=== PATIENT | male | born 1950 | race Caucasian/White ===

== ENCOUNTER 2017-02-01 15:18 | Emergency (ER) | payer OTHER ==
[~2017-02-01] VITALS: Ht 177.8 cm; Wt 86.2 kg
[2017-02-01 15:33] VITALS: TEMP 36.7; Ht 177.8 cm; Wt 86.2 kg
[2017-02-01] MEDS ORDERED: SODIUM CHLORIDE 0.9% 500ML 500 ML IV STA (15:54)
--- NOTE | 2017-02-01 16:01 | EMERGENCY ROOM VISIT NOTE ---
History Report prepared by Bita: Demetrio Johnson Under the Supervision of: Dr. Joseph Hyde M.D. First contact with patient: 15:48 Chief Complaint: BACK PAIN Stated Complaint: BACK PAIN History of Present Illness The patient is a 66 year old male with a history of kidney stones who presents to the Emergency Room with complaints of persistent mid lower back pain that started around 6 hours ago. He says that he had a colonoscopy yesterday, and everything went fine. He states that she had a polyp excised and had a staple put in. The patient says that he was doing his normal chores this morning and felt fine, but suddenly while standing in his garage, he started having low back pain that almost made him "go down". The patient called his doctor's office to ask if back pain was associated with a colonoscopy, but the patient was told that back pain is never associated with it. The patient adds that the back pain is worsened with movement. He rates the pain as a 2 or 3 out of 10 when resting, and an 8 out of 10 with movement. He denies any shortness of breath, cough, congestion, abdominal pain, leg pain, or new urinary symptoms. He also denies any recent falls. The patient's last kidney stone was 3 years ago , per the patient's . The patient says that he took 2 ibuprofen when the pain came on this morning with no relief. Source of History: patient, spouse/significant other Onset: Around 6 hours ago Position: back (lower) Symptom Intensity: 8/10 with movement Timing: other (persistent) Modifying Factors (Worsening): movement Associated Symptoms: No cough, No SOB, No abdominal pain, No urinary symptoms (no new) Note: Associated symptoms: Denies leg pain, congestion. Review of Systems See HPI for pertinent positives & negatives. A total of 10 systems reviewed and were otherwise negative. Past Medical & Surgical Medical Problems: (1) Urinary symptom or sign Family History Cancer Diabetes mellitus FH: heart disease FHx: lung disease Hypertension Social History Smoking Status: Former Smoker Alcohol Use: occasionally Marital Status: Housing Status: lives with family Occupation Status: retired Current/Historical Medications Scheduled PRN Oxycodone Ir (Roxicodone Ir), 1-2 TAB PO Q4H PRN for Pain Allergies Coded Allergies: No Known Allergies (Unverified , 02/01/17) Physical Exam Vital Signs Date Time Temp Pulse Resp B/P (MAP) Pulse Ox O2 Delivery O2 Flow Rate FiO2 02/01/17 18:44 56 117/75 100 02/01/17 15:33 36.7 59 20 120/75 98 Room Air Physical Exam GENERAL: Patient is in no acute distress. HEENT: No acute trauma, normocephalic atraumatic, mucous membranes moist, no nasal congestion, no scleral icterus. NECK: No stridor, no adenopathy, no meningismus, trachea is midline. LUNGS: Clear to auscultation bilaterally, no wheeze, no rhonchi, breath sounds equal. HEART: Without murmurs gallops or rubs, regular rate and rhythm. BACK: No focal lumbar tenderness. Pain does worsen with movement. ABDOMEN: Soft, nontender, bowel sounds positive, no hernias, no peritonitis. EXTREMITIES: No cyanosis or edema, full range of motion of all the joints without pain or difficulty, no signs for acute trauma. NEUROLOGIC: Oriented x 3, no acute motor or sensory deficits, no focal weakness. SKIN: No rash, no jaundice, no diaphoresis. Medical Decision & Procedures ER Provider Diagnostic Interpretation: CT results as stated below per my review and radiologist interpretation: LUMBAR SPINE WITHOUT CLINICAL HISTORY: 66 years-old Male presenting with low back pain, reformat from abdominal CT scan, recent colonoscopy. TECHNIQUE: Multidetector CT of the lumbar spine was performed without the use of intravenous contrast. IV contrast: None. A dose lowering technique was used consistent with the principles of ALARA (as low as reasonably achievable). COMPARISON: CT of the abdomen and pelvis from 2009. CT DOSE (mGy.cm): The estimated cumulative dose is 394.88 mGy.cm. 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 Vertebral body heights and alignment preserved. Lucent lesions noted in the L1 and L2 vertebral bodies consistent with hemangiomas. Intervertebral disc spaces preserved. No degenerative change. No osseous spinal canal or neural foraminal narrowing. No acute fracture or subluxation. No evidence of disc bulge. Paraspinal soft tissues within normal limits. IMPRESSION: No acute osseous injury of the lumbar spine. Electronically signed by: Franck Kate M.D. 02/01/2017 5:27 PM Dictated Date/Time: 02/01/2017 5:[address] OF THE ABDOMEN AND PELVIS WITH CONTRAST CLINICAL HISTORY: Abdominal pain. Colonoscopy yesterday. Evaluate for free air. COMPARISON STUDY: CT of the abdomen and pelvis April 04, 2010. TECHNIQUE: Following IV administration of 119 mL of Optiray-320, axial images of the abdomen and pelvis were obtained from the lung bases to the proximal femurs. Images were reviewed in the axial, sagittal, and coronal planes. IV contrast was administered without complication. A dose lowering technique was utilized adhering to the principles of ALARA. FINDINGS: No pneumatosis, free air or portal venous gas is present. A few subcentimeter hypodense lesions are too small to characterize but likely benign. The spleen, adrenal glands, kidneys and pancreas are unremarkable. There is no hydronephrosis. The caliber and wall thickness of small and large bowel are normal. There is an endoscopic clip within the cecum. There is no free fluid. No lymphadenopathy is present. Skeletal structures are unremarkable. The appendix is normal. IMPRESSION: No acute process within the abdomen or pelvis. No free air. Electronically signed by: Hill Marie M.D. 02/01/2017 5:33 PM Dictated Date/Time: 02/01/2017 5:20 PM Laboratory Results 02/01/17 16:00 Red Blood Count 4.69, Mean Corpuscular Volume 93.4, Mean Corpuscular Hemoglobin 32.4, Mean Corpuscular Hemoglobin Concent 34.7, Mean Platelet Volume 9.5, Neutrophils (%) (Auto) 57.6, Lymphocytes (%) (Auto) 31.2, Monocytes (%) (Auto) 10.4, Eosinophils (%) (Auto) 0.3, Basophils (%) (Auto) 0.3, Neutrophils # (Auto ) 3.47, Lymphocytes # (Auto) 1.88, Monocytes # (Auto) 0.63, Eosinophils # (Auto ) 0.02, Basophils # (Auto) 0.02 02/01/17 16:00 Test 02/01/17 16:00 White Blood Count 6.03 K/uL (4.8-10.8) Red Blood Count 4.69 M/uL (4.7-6.1) Hemoglobin 15.2 g/dL (14.0-18.0) Hematocrit 43.8 % (42-52) Mean Corpuscular Volume 93.4 fL (80-100) Mean Corpuscular Hemoglobin 32.4 pg (25-34) Mean Corpuscular Hemoglobin Concent 34.7 g/dl (32-36) Platelet Count 222 K/uL (130-400) Mean Platelet Volume 9.5 fL (7.4-10.4) Neutrophils (%) (Auto) 57.6 % Lymphocytes (%) (Auto) 31.2 % Monocytes (%) (Auto) 10.4 % Eosinophils (%) (Auto) 0.3 % Basophils (%) (Auto) 0.3 % Neutrophils # (Auto) 3.47 K/uL (1.4-6.5) Lymphocytes # (Auto) 1.88 K/uL (1.2-3.4) Monocytes # (Auto) 0.63 K/uL (0.11-0.59) Eosinophils # (Auto) 0.02 K/uL (0-0.5) Basophils # (Auto) 0.02 K/uL (0-0.2) RDW Standard Deviation 43.1 fL (36.4-46.3) RDW Coefficient of Variation 12.7 % (11.5-14.5) Immature Granulocyte % (Auto) 0.2 % Immature Granulocyte # (Auto) 0.01 K/uL (0.00-0.02) Anion Gap 6.0 mmol/L (3-11) Est Creatinine Clear Calc Drug Dose 67.3 ml/min Estimated GFR () 80.1 Estimated GFR (Non- 69.1 BUN/Creatinine Ratio 11.5 (10-20) Calcium Level 9.6 mg/dl (8.5-10.1) Total Bilirubin 0.4 mg/dl (0.2-1) Aspartate Amino Transf (AST/SGOT) 26 U/L (15-37) Alanine Aminotransferase (ALT/SGPT) 31 U/L (12-78) Alkaline Phosphatase 73 U/L (45-117) Total Protein 7.2 gm/dl (6.4-8.2) Albumin 3.7 gm/dl (3.4-5.0) Globulin 3.5 gm/dl (2.5-4.0) Albumin/Globulin Ratio 1.1 (0.9-2) Chemistry Specimen Hemolysis Laboratory results reviewed by me. Medications Administered Medications (Trade) Dose Ordered Sig/Earl Route Start Time Stop Time Status Last Admin Dose Admin Sodium Chloride 500 ml @ 999 mls/hr Q31M STAT IV 02/01/17 15:54 02/01/17 16:24 DC 02/01/17 16:16 999 MLS/HR ED Course 1548: The patient was evaluated in room B10. A complete history and physical exam was performed. 1554: Ordered NSS 500 ml @ 999 mls/hr IV. 1754: I reevaluated the patient and he is resting. The patient verbally expressed understanding and agreement of the treatment plan. The patient will be discharged. Medical Decision Differential diagnoses considered include bowel perforation, hematoma, lumbar strain, compression fracture, nerve impingement, disc disease, renal stone, UTI. There is no leukocytosis or concerning anemia. No significant electrolyte abnormality, kidney failure or hepatitis. On exam, the patient did not have any abdominal pain, there was no reproducible back pain but his pain did worsen with movement. Abdominal and pelvis CT does not show any evidence for perforation from the colonoscopy, no areas of hematoma. A mildly dilated aortic root was seen and thought [id number] was suggested. Lumbar spine CT did not show any acute fracture or malalignment. The patient's pain is likely musculoskeletal. The colonoscopy yesterday appears to have nothing to do with his presentation today. He was reassured. [id number] pain medication, oxycodone for severe pain. He will return for worsening symptoms or fever. He will follow with his doctor for the mildly dilated aortic root. [place] Drug Monitoring Program Search Results: patient reviewed within database, no issues identified Medication Reconcilliation Current Medication List: was personally reviewed by me Impression Primary Impression: Low back pain Additional Impression: Status post colonoscopy Scribe Attestation The scribe's documentation has been prepared under my direction and personally reviewed by me in its entirety. I confirm that the note above accurately reflects all work, treatment, procedures, and medical decision making performed by me. Departure Information Dispostion Home / Self-Care Prescriptions Oxycodone Ir (Roxicodone Ir) 5 Mg Tab 1-2 TAB PO Q4H Y for Pain, #8 TAB Prov: Joseph Hyde M.D. 02/01/17 Referrals Niall Torres MD (PCP) Forms HOME CARE DOCUMENTATION FORM, IMPORTANT VISIT INFORMATION Patient Instructions My [facility] Additional Instructions massage and heat should help no heavy lifting, stooping or bending rest otc pain meds as directed may use oxy ir 1 tab every 4 hours for severe pain return if worsening imaging and lab testing was ok today Problem Qualifiers Primary Impression: Low back pain Chronicity: acute Back pain laterality: midline Sciatica presence: unspecified whether sciatica present Qualified Codes: M54.5 - Low back pain
[2017-02-01] MEDS ORDERED: OPTIRAY 320 IV PRN (16:15)
[2017-02-01 16:16] LABS: BASO % 0.3 %; BASO ABS # 0.02 K/uL (0-0.2); COMPLETE YES; EOS % 0.3 %; HEMATOCRIT 43.8 % (42-52); IG% 0.2 %; LYMPH % 31.2 %; LYMPH ABS # 1.88 K/uL (1.2-3.4); MEAN CELL VOLUME 93.4 fL (80-100); MEAN CORPUSCULAR HEMOGLOBIN 32.4 pg (25-34); MEAN CORPUSCULAR HGB CONC 34.7 g/dl (32-36); MEAN PLATELET VOLUME 9.5 fL (7.4-10.4); MONO % 10.4 %; NEUT % 57.6 %; PLATELET COUNT 222 K/uL (130-400); RED BLOOD COUNT 4.69 M/uL (4.7-6.1); WHITE BLOOD COUNT 6.03 K/uL (4.8-10.8)
[2017-02-01 16:37] LABS: BUN/CREATININE RATIO 11.5 (10-20); CALCIUM 9.6 mg/dl (8.5-10.1); CREATININE 1.1 mg/dl (0.60-1.40); POTASSIUM 4.1 mmol/L (3.5-5.1)
[2017-02-01 16:43] LABS: ALB/GLOB RATIO 1.1 (0.9-2)
--- NOTE | 2017-02-01 17:28 | DIAGNOSTIC IMAGING REPORT ---
LUMBAR SPINE WITHOUT CLINICAL HISTORY: 66 years-old Male presenting with low back pain, reformat from abdominal CT scan, recent colonoscopy. TECHNIQUE: Multidetector CT of the lumbar spine was performed without the use of intravenous contrast. IV contrast: None. A dose lowering technique was used consistent with the principles of ALARA (as low as reasonably achievable). COMPARISON: CT of the abdomen and pelvis from 2010. CT DOSE (mGy.cm): The estimated cumulative dose is 394.88 mGy.cm. 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 Vertebral body heights and alignment preserved. Lucent lesions noted in the L1 and L2 vertebral bodies consistent with hemangiomas. Intervertebral disc spaces preserved. No degenerative change. No osseous spinal canal or neural foraminal narrowing. No acute fracture or subluxation. No evidence of disc bulge. Paraspinal soft tissues within normal limits. IMPRESSION: No acute osseous injury of the lumbar spine. Electronically signed by: Franck Kate M.D. 02/01/2017 5:27 PM Dictated Date/Time: 02/01/2017 5:22 PM
--- NOTE | 2017-02-01 17:34 | DIAGNOSTIC IMAGING REPORT ---
ADDENDUM Addendum: Images of the lower chest demonstrate mild dilatation of visualized portions of the aortic root, measuring approximately 4.2 cm at the level of the sinuses of Valsalva. A nonemergent CTA of the chest is recommended. Discussed with Dr. Hyde. Electronically signed by: Hill Marie M.D. 02/01/2017 6:36 PM Dictated Date/Time: 02/01/2017 6:[address] OF THE ABDOMEN AND PELVIS WITH CONTRAST CLINICAL HISTORY: Abdominal pain. Colonoscopy yesterday. Evaluate for free air. COMPARISON STUDY: CT of the abdomen and pelvis April 04, 2010. TECHNIQUE: Following IV administration of 119 mL of Optiray-320, axial images of the abdomen and pelvis were obtained from the lung bases to the proximal femurs. Images were reviewed in the axial, sagittal, and coronal planes. IV contrast was administered without complication. A dose lowering technique was utilized adhering to the principles of ALARA. FINDINGS: No pneumatosis, free air or portal venous gas is present. A few subcentimeter hypodense lesions are too small to characterize but likely benign. The spleen, adrenal glands, kidneys and pancreas are unremarkable. There is no hydronephrosis. The caliber and wall thickness of small and large bowel are normal. There is an endoscopic clip within the cecum. There is no free fluid. No lymphadenopathy is present. Skeletal structures are unremarkable. The appendix is normal. IMPRESSION: No acute process within the abdomen or pelvis. No free air. Electronically signed by: Hill Marie M.D. 02/01/2017 5:33 PM Dictated Date/Time: 02/01/2017 5:20 PM
[2017-02-01] MEDS ORDERED: OXYC1TAB3 PO (17:59)
[2017-02-01 18:44] VITALS: BP 117/75; PULSE 56; O2SAT 100
== END 2017-02-01 18:45 | disposition home or self-care (01) ==
LOC: C.EDB 15:19
DX: M54.5 Low back pain (principal); Z87.442 Personal history of urinary calculi; Z98.890 Other specified postprocedural states; Z87.891 Personal history of nicotine dependence; Z80.9 Family history of malignant neoplasm, unspecified; Z83.3 Family history of diabetes mellitus; Z82.49 Family history of ischemic heart disease and other diseases of the circulatory system

== ENCOUNTER → 2017-05-30 | Outpatient (CLI) | payer OTHER ==
[~2017-05-30] MED LIST: OXYC1TAB3 PO
== END | disposition home or self-care (01) ==
LOC: C.LAB 09:31
PROVIDERS: ATTEND Urology
DX: N40.1 Benign prostatic hyperplasia with lower urinary tract symptoms (principal); N52.9 Male erectile dysfunction, unspecified

== ENCOUNTER 2018-02-09 15:35 | Emergency (ER) | payer OTHER ==
[~2018-02-09] VITALS: Ht 177.8 cm; Wt 86.6 kg
[2018-02-09 15:44] VITALS: TEMP 36.3; Ht 177.8 cm; Wt 86.6 kg
[2018-02-09] MEDS ORDERED: ASPIRIN 81 MG CHEW PO STA (15:58)
[2018-02-09 16:19] VITALS: O2SAT 97
--- NOTE | 2018-02-09 16:23 | EMERGENCY ROOM VISIT NOTE ---
ED Visit Note First contact with patient: 15:48 CHIEF COMPLAINT: Dizziness/near syncope, left shoulder/arm pain, shortness of breath HISTORY OF PRESENTING ILLNESS: This is a 67-year-old male who presents to the emergency department by private vehicle with his with complaint of dizziness and near syncope that started around 2 PM today. Patient states that he was exerting himself quite a lot this morning, splitting wood and pushing a wheelbarrow full of wood. He states he started feeling lightheaded while he was splitting wood. He was pushing a wheelbarrow full of wood to the house when he became very dizzy and nearly passed out. He though maybe he was dehydrated, but he has been drinking normally today and his symptoms did not improve. He also states that he felt short of breath and began to develop an ache in his left shoulder radiating down the arm. His symptoms improved somewhat with rest, but were persistent with even light exertion, so he decided to come to the emergency department to be checked. He states his symptoms have mostly resolved since arriving to the emergency department and being at rest, but he states that they seem to come back with minimal exertion. He also feels very anxious right now. He currently describes pain in his left arm as a dull ache, states it is almost gone, but rates it a 1/10. He denies any numbness or tingling in the arm. He does not feel short of breath or dizzy right now. He is a former smoker, quit over 35 years ago. He denies any history of hypertension, hyperlipidemia, or diabetes. Family history of congenital heart defect in his mother, as well as family history for diabetes, he denies any known history of coronary artery disease or myocardial infarction. REVIEW OF SYSTEMS: A complete 10 point review of systems was reviewed with the patient with pertinent positives and negatives as per history of present illness. All else were negative. PAST MEDICAL HISTORY: BPH SOCIAL HISTORY: Lives at home with . Denies tobacco use. ALLERGIES: No known allergies. PHYSICAL EXAM: CONSTITUTIONAL: Pleasant and cooperative. No acute distress. Well-hydrated, well appearing and well nourished. HEENT: Normocephalic, atraumatic. Pupils equal, round and reactive to light, EOMI. TMs normal. Pharynx normal. Moist mucous membranes. NECK: Supple, full active range of motion without discomfort. RESPIRATORY: Clear to auscultation bilaterally with no wheezing, crackles, rhonchi or stridor. Equal expansion bilaterally. CARDIOVASCULAR: Regular rate and rhythm with no murmurs, rubs or gallops. Normal peripheral perfusion. No edema. GASTROINTESTINAL: Soft, nontender, nondistended. No palpable masses or HSM. Bowel sounds present in all quadrants. MUSCULOSKELETAL: Full range of motion of all joints without discomfort. INTEGUMENTARY: No rash or other significant dermatologic conditions noted. NEUROLOGIC: Alert and oriented X 4 with normal affect. Cranial nerves II-XII grossly intact, no facial droop. No pronator drift. No focal neurologic deficits noted. Normal strength and sensation in all 4 extremities. Normal speech. Normal gait observed. Negative Romberg. ED COURSE AND MEDICAL DECISION MAKING: CC: Patient presenting with complaint of exertional dizziness/near syncope with shortness of breath and left shoulder pain DIFFERENTIAL DIAGNOSIS: Includes, but not limited to acute coronary syndrome, unstable angina, PE, aortic dissection, orthostatic hypotension, vasovagal episode, cardiac dysrhythmia, dehydration, electrolyte abnormality, among others. INTERPRETATION OF LABS: No leukocytosis, no anemia, normal platelets, no significant electrolyte abnormalities, normal renal function, normal liver enzymes and lipase. Troponin 3 negative. Coagulation factors within normal limits. IMAGING: CHEST 2 VIEWS ROUTINE CLINICAL HISTORY: CHEST PAIN pain COMPARISON STUDY: No previous studies for comparison. FINDINGS: The bones soft tissues and hemidiaphragms are normal. The cardiomediastinal silhouette is normal. The lungs are clear. The pulmonary vasculature is normal. IMPRESSION: Negative chest. EKG: Shows normal sinus rhythm with a rate of 80 bpm, no ST or T-wave changes, no ectopy, when compared to previous EKG from 08/06/2015, the rate is increased by 25 bpm, no other significant changes by my interpretation. MEDICATION RECONCILIATION: I attest that I have personally reviewed the patient 's current medication list. INITIAL VITAL SIGNS REVIEW: I reviewed the patient's initial vital signs and interpret them as follows: T: Afebrile; BP: Normotensive; HR: Within normal limits; RR: Within normal limits; Pulse Ox: Within normal limits on room air. Blood pressure screening: The patient was found to have normal blood pressure on screening and does not require follow-up for repeat blood pressure check. SUMMARY: Patient was evaluated at bedside, history and physical exam performed. Patient is alert and oriented, in no acute distress, resting calmly in stretcher. Heart and lung exam are unremarkable. He is normotensive. Low risk for PE by Well's criteria. Exertional symptoms concerning for ACS. Aspirin 324mg chewable ordered. EKG reviewed at bedside, NSR with no acute ischemic changes. Orders were placed at bedside for labs including troponin, orthostatic vital signs, chest x-ray to evaluate for cardiopulmonary abnormalities. Patient discussed with Dr. Pena, who agrees with my assessment and plan. Labs and imaging reviewed as above, initial workup is negative. Orthostatic vital signs are negative and the patient does not appear clinically dehydrated. Patient's workup for ACS so far has been negative, no acute STEMI or NSTEMI, but exertional symptoms concerning for underlying cardiac problem. I do feel the patient would benefit from an admission for cardiac rule out. I spoke with Dr. Alfaro, hospitalist, who feels the patient is low risk, recommended performing another troponin at 6 hours. 6 hour troponin is also negative. 1 L fluid bolus ordered by Dr. Alfaro. Patient continues to be symptom free. Given negative troponin at 6 hours and patient is relatively low risk, Dr. Alfaro did not feel the patient warranted admission at this time. He recommended starting the patient on a baby aspirin, and have the patient follow-up with his PCP within 1 week and have an outpatient stress test ordered. Patient reassessed multiple times throughout ED stay, he has remained stable and symptom-free, and he and his were comfortable with this plan. Patient was given strict return precautions should his symptoms worsen, he verbalized understanding. Patient was discharged home in stable condition and ambulatory. Problem List Medical Problems: (1) Urinary symptom or sign Status: Chronic Current/Historical Medications Scheduled Tamsulosin Hcl (Flomax), 0.4 MG PO HS Allergies Coded Allergies: No Known Allergies (Unverified , 02/09/18) Vital Signs Date Time Temp Pulse Resp B/P (MAP) Pulse Ox O2 Delivery O2 Flow Rate FiO2 02/09/18 21:54 66 18 117/78 100 02/09/18 20:37 70 02/09/18 20:24 67 18 123/84 98 Room Air 02/09/18 18:51 68 18 124/82 98 Room Air 02/09/18 17:30 62 19 114/75 96 Room Air 02/09/18 17:14 78 20 103/73 96 Room Air 02/09/18 16:55 72 109/70 82 107/74 74 108/70 02/09/18 16:29 73 02/09/18 16:21 78 24 123/84 97 Room Air 02/09/18 16:19 97 Room Air 02/09/18 15:44 36.3 85 20 113/69 97 Room Air Laboratory Results 02/09/18 16:23 Red Blood Count 4.49, Mean Corpuscular Volume 94.7, Mean Corpuscular Hemoglobin 32.7, Mean Corpuscular Hemoglobin Concent 34.6, Mean Platelet Volume 9.7, Neutrophils (%) (Auto) 81.9, Lymphocytes (%) (Auto) 10.7, Monocytes (%) (Auto) 7.1, Eosinophils (%) (Auto) 0.0, Basophils (%) (Auto) 0.2, Neutrophils # (Auto) 7.65, Lymphocytes # (Auto) 1.00, Monocytes # (Auto) 0.66, Eosinophils # (Auto) 0.00, Basophils # (Auto) 0.02 02/09/18 16:23 Test 02/09/18 16:23 02/09/18 20:19 White Blood Count 9.34 K/uL (4.8-10.8) Red Blood Count 4.49 M/uL (4.7-6.1) Hemoglobin 14.7 g/dL (14.0-18.0) Hematocrit 42.5 % (42-52) Mean Corpuscular Volume 94.7 fL (80-100) Mean Corpuscular Hemoglobin 32.7 pg (25-34) Mean Corpuscular Hemoglobin Concent 34.6 g/dl (32-36) Platelet Count 190 K/uL (130-400) Mean Platelet Volume 9.7 fL (7.4-10.4) Neutrophils (%) (Auto) 81.9 % Lymphocytes (%) (Auto) 10.7 % Monocytes (%) (Auto) 7.1 % Eosinophils (%) (Auto) 0.0 % Basophils (%) (Auto) 0.2 % Neutrophils # (Auto) 7.65 K/uL (1.4-6.5) Lymphocytes # (Auto) 1.00 K/uL (1.2-3.4) Monocytes # (Auto) 0.66 K/uL (0.11-0.59) Eosinophils # (Auto) 0.00 K/uL (0-0.5) Basophils # (Auto) 0.02 K/uL (0-0.2) RDW Standard Deviation 44.1 fL (36.4-46.3) RDW Coefficient of Variation 12.7 % (11.5-14.5) Immature Granulocyte % (Auto) 0.1 % Immature Granulocyte # (Auto) 0.01 K/uL (0.00-0.02) Nucleated RBC Absolute Count (auto) 0.03 K/uL (0-0) Nucleated Red Blood Cells % 0.3 % Prothrombin Time 10.6 SECONDS (9.0-12.0) Prothromb Time International Ratio 1.0 (0.9-1.1) Activated Partial Thromboplast Time 25.0 SECONDS (21.0-31.0) Partial Thromboplastin Ratio 1.0 Anion Gap 6.0 mmol/L (3-11) Est Creatinine Clear Calc Drug Dose 66.4 ml/min Estimated GFR () 79.5 Estimated GFR (Non- 68.6 BUN/Creatinine Ratio 12.0 (10-20) Calcium Level 9.4 mg/dl (8.5-10.1) Total Bilirubin 0.6 mg/dl (0.2-1) Direct Bilirubin 0.2 mg/dl (0-0.2) Aspartate Amino Transf (AST/SGOT) 26 U/L (15-37) Alanine Aminotransferase (ALT/SGPT) 26 U/L (12-78) Alkaline Phosphatase 75 U/L (45-117) Total Protein 7.2 gm/dl (6.4-8.2) Albumin 4.0 gm/dl (3.4-5.0) Lipase 99 U/L (73-393) Troponin I < 0.015 ng/ml (0-0.045) Medications Administered Medications (Trade) Dose Ordered Sig/Earl Route Start Time Stop Time Status Last Admin Dose Admin Aspirin (Aspirin Chew) 324 mg NOW STAT PO 02/09/18 15:58 02/09/18 16:01 DC 02/09/18 16:18 324 MG Sodium Chloride 1,000 ml @ 999 mls/hr Q1H1M IV 02/09/18 21:00 02/09/18 21:59 DC 02/09/18 21:01 999 MLS/HR Departure Information Impression Primary Impression: Near syncope Additional Impression: Exertional shortness of breath Dispostion Home / Self-Care Condition GOOD Referrals Niall Torres MD (PCP) Patient Instructions ED Near Syncope Mal, Savannha [facility] Additional Instructions You have been evaluated in the emergency department for your lightheadedness, shortness of breath, and left arm pain. Laboratory results and imaging studies have ruled out any emergent causes for your symptoms which would warrant admission or surgery. It is important that you stay well hydrated. Drink plenty of fluids throughout the day to accomplish this. Start taking a baby aspirin (81 mg) every day. This is available over-the- counter. You should follow-up with your primary care provider within the next week to be set up for an exercise stress echocardiogram study as an outpatient. Call for an appointment. Please return to the emergency department for any return or worsening of your symptoms, including chest pain, shortness of breath, severe dizziness or passing out, severe nausea or persistent vomiting, cold sweats, or any other concerns. Problem Qualifiers
[2018-02-09 16:32] LABS: BASO % 0.2 %; BASO ABS # 0.02 K/uL (0-0.2); HEMATOCRIT 42.5 % (42-52); HEMOGLOBIN 14.7 g/dL (14.0-18.0); IG# 0.01 K/uL (0.00-0.02); LYMPH % 10.7 %; MEAN CELL VOLUME 94.7 fL (80-100); MEAN CORPUSCULAR HEMOGLOBIN 32.7 pg (25-34); MEAN CORPUSCULAR HGB CONC 34.6 g/dl (32-36); MEAN PLATELET VOLUME 9.7 fL (7.4-10.4); MONO % 7.1 %; MONO ABS # 0.66 K/uL (0.11-0.59); NEUT % 81.9 %; NEUT ABS # 7.65 K/uL (1.4-6.5); NUCLEATED RED BLOOD CELL ABS 0.03 K/uL (0-0); PLATELET COUNT 190 K/uL (130-400); RED CELL DISTRIBUTION WIDTH CV 12.7 % (11.5-14.5); RED CELL DISTRIBUTION WIDTH SD 44.1 fL (36.4-46.3); WHITE BLOOD COUNT 9.34 K/uL (4.8-10.8)
[2018-02-09 16:55] LABS: ALKALINE PHOSPHATASE 75 U/L (45-117); ALT/SGPT 26 U/L (12-78); AST/SGOT 26 U/L (15-37); BLOOD UREA NITROGEN 13 mg/dl (7-18); CALCIUM 9.4 mg/dl (8.5-10.1); CARBON DIOXIDE 27 mmol/L (21-32); GLUCOSE 85 mg/dl (70-99); LIPASE 99 U/L (73-393); POTASSIUM 3.7 mmol/L (3.5-5.1); SODIUM 139 mmol/L (136-145); TOTAL PROTEIN 7.2 gm/dl (6.4-8.2)
[2018-02-09] MEDS ORDERED: TAMS0.4C38 PO (17:07)
--- NOTE | 2018-02-09 17:19 | DIAGNOSTIC IMAGING REPORT ---
CHEST 2 VIEWS ROUTINE CLINICAL HISTORY: CHEST PAIN pain COMPARISON STUDY: No previous studies for comparison. FINDINGS: The bones soft tissues and hemidiaphragms are normal. The cardiomediastinal silhouette is normal. The lungs are clear. The pulmonary vasculature is normal. IMPRESSION: Negative chest. The above report was generated using voice recognition software. It may contain grammatical, syntax or spelling errors. Electronically signed by: Faizan Hernandez M.D. 02/09/2018 5:18 PM Dictated Date/Time: 02/09/2018 5:18 PM
[2018-02-09] MEDS ORDERED: SODIUM CHLORIDE 0.9% 1000ML 1,000 ML IV SCH (21:00)
--- NOTE | 2018-02-09 21:20 | Medical Consult ---
Consultation Date of Consultation: Feb 09, 2018. Attending Physician: History of Present Illness 67M with a PMHx of BPH presents with dizziness,SOB and left arm tingling starting at approximately 2pm today. Patient was exerting himself in the yard when the symptoms happened. He states that this has happened to him in the past but today he was unable to shake his symptoms which brought him into the ED. He is present with his who confirms portions of the history. Per patient he had not had anything to eat or any significant amount of fluids to drink. He has a history of low to normal blood pressure. He has never been diagnosed with diabetes or high cholesterol. He does receive regular follow up with his PCP Dr. Torres. Patient does get dizzy if he stands up too quickly. At time of presentation patient was asymptomatic. Pt states that his symptoms had resolved shortly after coming into the ER. PMHx: BPH, chronic right sided discomfort x 20years - had had extensive workup and all tests and imaging her negative. No cardiac history, never seen a oncology patient navigator, never had a stress test. Meds: Flomax SHX: Denies smoking, smoked the occasional cigarettes 40+ years ago, denies ETOH , denies chewing, denies other illicit substances. ROS: No vomiting, no diarrhea. Past Medical/Surgical History Medical Problems: (1) Exertional shortness of breath Status: Acute (2) Low back pain Status: Acute (3) Near syncope Status: Acute Social History Problems: (1) Status post colonoscopy Status: Acute Family History Cancer Diabetes mellitus FH: heart disease FHx: lung disease Hypertension Social History Smoking Status: Former Smoker Marital Status: Housing Status: lives with family Occupation Status: retired Allergies Coded Allergies: No Known Allergies (Unverified , 02/09/18) Review of Systems Constitutional: No fever, No chills, No fatigue Eyes: No worsening of vision ENT: No hearing loss Respiratory: + shortness of breath, + dyspnea on exertion, No cough, No sputum , No wheezing, No dyspnea at rest, No hemoptysis Cardiovascular: No chest pain, No edema Abdomen: No pain, No nausea, No vomiting, No diarrhea, No constipation, No GI bleeding Musculoskeletal: No joint pain Genitourinary - Male: No hematuria, No dysuria Neurologic: No memory loss Physical Exam Date Time Temp Pulse Resp B/P (MAP) Pulse Ox O2 Delivery O2 Flow Rate FiO2 02/09/18 20:37 70 02/09/18 20:24 67 18 123/84 98 Room Air 02/09/18 18:51 68 18 124/82 98 Room Air 02/09/18 17:30 62 19 114/75 96 Room Air 02/09/18 17:14 78 20 103/73 96 Room Air 02/09/18 16:55 72 109/70 82 107/74 74 108/70 02/09/18 16:29 73 02/09/18 16:21 78 24 123/84 97 Room Air 02/09/18 16:19 97 Room Air 02/09/18 15:44 36.3 85 20 113/69 97 Room Air General Appearance: WD/WN, no apparent distress Head: normocephalic, atraumatic Eyes: normal inspection, PERRL, EOMI ENT: normal ENT inspection Neck: supple Respiratory/Chest: chest non-tender, lungs clear, normal breath sounds, no respiratory distress, no accessory muscle use Cardiovascular: regular rate, rhythm, no edema, no gallop, no JVD, no murmur, normal peripheral pulses Abdomen/GI: normal bowel sounds, non tender, soft, no organomegaly, no pulsatile mass Back: normal inspection, no CVA tenderness, + pertinent finding (pt does have right sided rib pain at a fairly localized site when pressed, no skin changes - this is chronic x 20 years) Extremities/Musculoskelatal: normal inspection, no calf tenderness, normal capillary refill, no pedal edema, normal range of motion 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, no motor/sensory deficits, alert, normal mood/affect, normal reflexes, oriented x 3 Skin: normal color Laboratory Results Last 24 Hours Test 02/09/18 16:23 02/09/18 17:49 02/09/18 20:19 White Blood Count 9.34 K/uL Red Blood Count 4.49 M/uL Hemoglobin 14.7 g/dL Hematocrit 42.5 % Mean Corpuscular Volume 94.7 fL Mean Corpuscular Hemoglobin 32.7 pg Mean Corpuscular Hemoglobin Concent 34.6 g/dl Platelet Count 190 K/uL Mean Platelet Volume 9.7 fL Neutrophils (%) (Auto) 81.9 % Lymphocytes (%) (Auto) 10.7 % Monocytes (%) (Auto) 7.1 % Eosinophils (%) (Auto) 0.0 % Basophils (%) (Auto) 0.2 % Neutrophils # (Auto) 7.65 K/uL Lymphocytes # (Auto) 1.00 K/uL Monocytes # (Auto) 0.66 K/uL Eosinophils # (Auto) 0.00 K/uL Basophils # (Auto) 0.02 K/uL RDW Standard Deviation 44.1 fL RDW Coefficient of Variation 12.7 % Immature Granulocyte % (Auto) 0.1 % Immature Granulocyte # (Auto) 0.01 K/uL Nucleated RBC Absolute Count (auto) 0.03 K/uL Nucleated Red Blood Cells % 0.3 % Prothrombin Time 10.6 SECONDS Prothromb Time International Ratio 1.0 Activated Partial Thromboplast Time 25.0 SECONDS Partial Thromboplastin Ratio 1.0 Sodium Level 139 mmol/L Potassium Level 3.7 mmol/L Chloride Level 106 mmol/L Carbon Dioxide Level 27 mmol/L Anion Gap 6.0 mmol/L Blood Urea Nitrogen 13 mg/dl Creatinine 1.10 mg/dl Est Creatinine Clear Calc Drug Dose 66.4 ml/min Estimated GFR () 79.5 Estimated GFR (Non- 68.6 BUN/Creatinine Ratio 12.0 Random Glucose 85 mg/dl Calcium Level 9.4 mg/dl Total Bilirubin 0.6 mg/dl Direct Bilirubin 0.2 mg/dl Aspartate Amino Transf (AST/SGOT) 26 U/L Alanine Aminotransferase (ALT/SGPT) 26 U/L Alkaline Phosphatase 75 U/L Troponin I < 0.015 ng/ml < 0.015 ng/ml Total Protein 7.2 gm/dl Albumin 4.0 gm/dl Lipase 99 U/L Assessment & Plan 67M with a PMHx of BPH (on flomax) presents to the ER for symptoms concerning for cardiac ischemia (L arm tingling, SOB on exertion). Symptoms have completely resolved within two hours. Pt received high dose ASA in the ER. And trops were negative up until 6 hours after symptoms onset (2pm - last trop checked at 8pm). Suspected Cardiac Ischemia (low probability, <1% for ACS event) No acute EKG changes. Trops negative x 3 (last trop was 6hrs from symptoms onset). Patient has a remarkably uncomplicated medical history - no HTN (in fact pt states BPs have been low in the past), no HLD, no DM2 - only risk factors are age and sex. He states he frequently gets similar symptoms on exertion but today's symptoms persisted longer than usual - he will likely need an outpatient cardiac stress test. We did talk extensively about return to the ER criteria, namely a reoccurrence or worsening of his symptoms. I advised that he avoid activities that provoke his symptoms until after he obtain a cardiac stress test. After speaking with Dr. Alfaro we recommend 81mg daily ASA for primary prevention. A fluid bolus was also given for suspected dehydration. Advised patient to stay well hydrated and to eat a full meal before starting any strenuous activity (of course to do this after he receives his cardiac workup) and to stop the activity immediately if his symptoms return. Follow up with PCP in one week. Case discussed with Tomasa Israel. We do appreciate the consult. h/o Hypotension & dizziness when standing too fast Pt states that he frequently gets lightheaded when standing up too quickly from a seated position. This may be worsened by his flomax. Advised outpatient follow up. Long standing RUQ pain in setting or R Rib Fracture and Nearby Abscess removal Extensive outpatient workup has been negative per patient. Pain is worsened by pushing on the rib. Unsure how clinically relevant this is, ddx include neuropathy from rashless shingles vs nerve damage from a removed abscess close to the site of pain vs chronic MSK pain. Resident Physician Supervision Note: I was present with Dr. Honeycutt during the history and exam. I discussed the case with the resident and agree with the findings and plan as documented in the note. Any exceptions or clarifications are listed here: 67 y/o M Hx BPH, orthostasis - no cardiac history. Pt had c/o dizziness throughout the day while he was milling some wood in his yard. He developed an episode of central CP with L paresthesias. He was asymptomatic in the ER. An initial trop and EKG did not provide evidence of ischemia. OE AAO x 3 S1,2 R CTAB NT, ND No CCE No deficits P: As the pt did not have significant risk factors and was asymptomatic we elected to repeat his troponin while in the ER. This was obtained approximately 8 hours out from his initial symptoms and 3 hours following an initial trop. Results were once again negative. DC was discussed with the pt who was amenable to outpt f/u. He was advised on stress testing, instructed to take daily ASA and instructed to return to the ER if CP recurs. He is told to avoid exertion over the weekend and prior to following up with his MD. Documented By: Reese Alfaro Additional Copies To Niall Torres MD Resident Involvement: Resident Care Provided Care Provided: Adult [facility]
[2018-02-09 21:54] VITALS: BP 117/78; PULSE 66; O2SAT 100
== END 2018-02-09 21:54 | disposition home or self-care (01) ==
LOC: C.EDB 15:37
DX: R55 Syncope and collapse (principal); R06.02 Shortness of breath; N40.0 Benign prostatic hyperplasia without lower urinary tract symptoms; R07.9 Chest pain, unspecified; R20.2 Paresthesia of skin; Z87.891 Personal history of nicotine dependence; Z83.3 Family history of diabetes mellitus; Z79.899 Other long term (current) drug therapy